=== PATIENT | male | born 1930 | race Caucasian/White ===

== ENCOUNTER → 2019-02-05 | Outpatient (CLI) | payer MEDICARE, OTHER ==
[~2019-02-05] MED LIST: ASCO-288 PO; ASPI-465; CARV6.2545 PO; CLOP75TA19 PO; ESOM40CA PO; MULTIVITAMIN; OMEG1CAP2 PO; RANI300T3 PO; REGADENOSON 0.4 MG/5 ML SYG ONE; RSV10T PO; TELM20TA PO; VITA1CAP38 PO
== END | disposition home or self-care (01) ==
LOC: NUC 08:38
PROVIDERS: ATTEND Internal Medicine Interventional Cardiology
DX: I25.10 Atherosclerotic heart disease of native coronary artery without angina pectoris (principal); R53.83 Other fatigue; R07.9 Chest pain, unspecified; R06.02 Shortness of breath
CPT/HCPCS: 78452; 93017; A9500; A9505; J2785